=== PATIENT | male | born 1975 | race Caucasian/White ===

== ENCOUNTER → 2024-03-15 09:29 | Outpatient (REF) | payer OTHER, SELFPAY | LOC: HWRAD 09:29 | PROVIDERS: ATTENDING PHYSICIAN Otolaryngology; FAMILY PHYSICIAN Family Medicine | DX: J32.0 Chronic maxillary sinusitis (principal); R09.81 Nasal congestion | CPT/HCPCS: 70486 ==

== ENCOUNTER 2024-11-29 06:14 | Day surgery (SDC) | payer BC, SELFPAY ==
[2024-11-29] VITALS (8 sets, daily range): BP systolic 128–149; BP diastolic 54–94; BMI 34.2
[2024-11-29] MEDS: NORMOSOL-R/PLASMALYTE-A 1000 IV (08:18)
[2024-11-29] MEDS: DILAUDID 0.25 MG IV (11:46)
== END 2024-11-29 12:46 | disposition home or self-care (01) ==
LOC: SDS 06:14
PROVIDERS: ATTENDING PHYSICIAN Otolaryngology; FAMILY PHYSICIAN Family Medicine
DX: J34.2 Deviated nasal septum (principal); J34.3 Hypertrophy of nasal turbinates; J32.2 Chronic ethmoidal sinusitis; J32.0 Chronic maxillary sinusitis
CPT/HCPCS: 31256; 30520; 30130; 88300; 88304; 88311